=== PATIENT | male | born 1995 | race Caucasian/White ===

== ENCOUNTER 2016-06-07 01:17 | Emergency (ER) | payer OTHER ==
[~2016-06-07] VITALS: Ht 188 cm; Wt 85.0 kg
--- NOTE | 2016-06-07 01:30 | NUR ---
Pt having some nausea, given an emesis bag, he does spit quite frequently. Pt asks same question over severa times in a row, and states several times that he does not remember what happened.
[2016-06-07] MEDS ORDERED: ONDANSETRON 4 MG (ZOFRAN) ORAL DISSOLVE TAB ONE (01:33)
--- NOTE | 2016-06-07 01:45 | NUR ---
Pt vomited while waiting to go to CT
[2016-06-07] MEDS ORDERED: BACITRACIN OINTMENT 0.9 GM PACKET TOP ONE (02:10)
[2016-06-07] MEDS ORDERED: NS IV 500 ML 500 ML IV SCH (02:10)
[2016-06-07] MEDS ORDERED: TETANUS, DIPTHERIA, PERTUSSIS (ADACELL) VACCINE 0.5 ML VIAL IM ONE (02:10)
[2016-06-07] MEDS ORDERED: LIDOCAINE 1% (XYLOCAINE) 20 ML VIAL INJ ONE (02:10)
[2016-06-07] MEDS ORDERED: ONDANSETRON 2 MG/ML (Z0FRAN) 2 ML VIAL IV ONE (02:10)
[2016-06-07] MEDS ORDERED: SODIUM CHLORIDE FLUSH 3 ML SYR IV ONE (02:10)
[2016-06-07] MEDS ORDERED: SODIUM CHLORIDE FLUSH 10 ML SYR IV PRN (02:10)
[2016-06-07 02:19] LABS: BASOPHILS % (AUTO) 0 % (0-2); EOSINOPHILS % (AUTO) 0 % (0-4); LYMPHOCYTES # (AUTO) 3.2 X10^3; MEAN CORPUSCULAR VOLUME 90 FL (80-100); MEAN PLATELET VOLUME 9.6 FL (6.0-9.5); MONOCYTES # (AUTO) 0.9 X10^3; MONOCYTES % (AUTO) 11 % (3-11); NEUTROPHILS # (AUTO) 3.8 X10^3; NEUTROPHILS % (AUTO) 48 % (51-67); PLATELET COUNT 183 10^3uL (150-450); WHITE BLOOD COUNT 7.99 10^3uL (4.0-11.0)
[2016-06-07 02:24] LABS: MEAN CORPUSCULAR HEMOGLOBIN 32.9 PG (26.0-34.0); MEAN CORPUSCULAR HGB CONC 36.8 g/dL (31.0-37.0)
[2016-06-07 02:25] LABS: ANION GAP 24.3 MEQ/L (3-15); CALCULATED IONIZED CALCIUM 3.7 mg/dL (3.8-4.6); TOTAL PROTEIN 8.3 g/dL (6.4-8.5)
[2016-06-07 04:11] VITALS: BP 108/52
--- NOTE | 2016-06-07 04:13 | NUR ---
Discharge notes and instructions given to pt and his friend, Gilberto, who agreed to stay with him and do neuro checks on the pt for the next 24 -48 hours.
--- NOTE | 2016-06-07 08:24 | Diagnostic Imaging Report ---
PROCEDURE: CT head and CT cervical spine without contrast. TECHNIQUE: Multiple contiguous axial images were obtained through the brain and cervical spine without the use of intravenous contrast. Sagittal and coronal reformations through the cervical spine were then performed. INDICATION: Fall COMPARISON: None available FINDINGS: No intracranial hemorrhage. 9 mm hypodensity is identified within the inferior aspect of the right basal ganglia. No additional intracranial mass, mass effect, midline shift, herniation, hydrocephalus, or extra-axial fluid collection. No definite CT evidence of an acute ischemic infarction. Alignment of the cervical spine is well maintained. Vertebral body heights and disc spaces are well-maintained. No acute fracture identified within the cervical spine. Fracture of the anterior wall of the left maxillary sinus is present. This is associated with fluid and hemorrhage within the left maxillary sinus. No high-grade osseous central canal or neuroforaminal stenosis. IMPRESSION: 1. No acute intracranial abnormality. 2. Fracture involving the anterior wall of the left maxillary sinus with associated fluid and hemorrhage within the left maxillary sinus. This is only partially visualized. 3. No acute osseous abnormality within the cervical spine. 4. Tiny hypodensity within the inferior right basal ganglia. This is favored to simply relate to a dilated perivascular space. Agree with preliminary interpretation. Dictated by: Dictated on workstation # [id number]
--- NOTE | 2016-06-07 08:49 | Diagnostic Imaging Report ---
PROCEDURE: CT head and maxillofacial without contrast. TECHNIQUE: Multiple contiguous axial images were obtained through the head and facial bones without the use of intravenous contrast. INDICATION: Fall. COMPARISON: CT of the head and cervical spine from the same day. FINDINGS: Nondisplaced left nasal bone fracture. Frontal sinuses are clear. Minimal mucosal thickening within scattered ethmoidal air cells. The sphenoid sinuses are clear. Minimal mucosal thickening within the right maxillary sinus. Mildly comminuted and depressed fracture involving the anterior and inferior wall of the left maxillary sinus. This is associated with fluid and hemorrhage within the left maxillary sinus. Orbital rims are intact. Zygomatic arches are intact. No temporomandibular joint dislocation. The globes are intact. Soft tissue swelling overlying the bridge of the nose extending over the left face. No suspicious radiopaque foreign body. IMPRESSION: 1. Mildly comminuted and depressed fractures involving the anterior and inferior mark of the left maxillary sinus. This is associated with fluid and hemorrhage within the left maxillary sinus. 2. Nondisplaced left nasal bone fracture. 3. Contusion involving the face, particularly overlying the nose and left infraorbital region. Agree with preliminary interpretation. Dictated by: Dictated on workstation # [id number]
== END 2016-06-07 04:00 | disposition home or self-care (01) ==
LOC: ED 01:20
DX: S01.01XA Laceration without foreign body of scalp, initial encounter (principal); Y04.2XXA Assault by strike against or bumped into by another person, initial encounter; Y93.89 Activity, other specified; Y92.214 College as the place of occurrence of the external cause
CPT/HCPCS: 12001; 36415; 70450; 70486; 72125; 80053; 80320; 85025; 90471; 90715; 96374; 99284; J2405; J7040; 99283